=== PATIENT | female | born 2000 | race Caucasian/White ===

== ENCOUNTER 2019-03-19 19:15 | Inpatient (IN) | payer OTHER ==
--- NOTE | 2019-03-19 16:35 | PDOC.LDHP ---
Labor and Delivery H&P Chief complaint: scheduled induction HPI: 18 yo G1 @ 39w1d admit for IOL due to A1DM. Current gestational age (weeks): 39 Due date: 03/25/19 Dating criteria: first trimester ultrasound Grav: 1 Para: 0 Current complications: gestational diabetes Abnormal US findings: No Current medications: pre- vitamins Previous surgical history: other (Tonsillectomy) Allergies/Adverse Reactions: Allergies Allergy/AdvReac Type Severity Reaction Status Date / Time No Known Allergies Allergy Verified 03/19/19 21:03 Social history: none - Physical Exam Vital signs reviewed and normal: yes General: NAD Heart: RRR Lungs: nonlabored breathing Abdomen: gravid Extremeties: no edema FHT: category 1 (cat 1 on admission) [place] contractions every: no ctx on admission - Vaginal Exam cm dilated: 1 (per RN ) Effacement: 50% Station: -3 - OB Labs Blood type: O RH: positive Antibody Screen: negative HIV: negative RPR: negative HEPSAg: negative 1 hour GCT: positive 3 hour GTT: positive GBS: negative Urine drug screen: negative Rubella: immune Additional Labs: NIPT and carrier screening wnl - Assessment 39w2d IUP IOL for A1DM - Plan Plan: admit to L&D, cervical ripening, informed consent obtained, anesthesia consult for pain management
[~2019-03-19 19:15] MED LIST: Bupivacaine 0.25% HCL 30 ML VIAL ONE
[2019-03-19] MEDS: Lactated Ringer's 1,000 ML IV SCH (21:00)
[2019-03-19] MEDS ORDERED: Lidocaine 1% (PF) 30 ML VIAL SC PRN (21:01)
[2019-03-19] MEDS ORDERED: Butorphanol Tartrate 1 MG/ML VIAL SLOW IVP PRN (21:01)
[2019-03-19] MEDS ORDERED: Carboprost 250 MCG/ML AMP IM PRN (21:01)
[2019-03-19] MEDS ORDERED: NS / Oxytocin 40 units/1000ml 1,000 ML IV PRN (21:01)
[2019-03-19] MEDS ORDERED: HYDROcodone/Acetaminophen 5/325 mg Tablet PO PRN (21:01)
[2019-03-19] MEDS ORDERED: hydrALAZINE 20 MG/ML VIAL SLOW IVP PRN (21:01)
[2019-03-19] MEDS ORDERED: Ondansetron PF 4 MG/2 ML Vial IVP PRN (21:01)
[2019-03-19] MEDS ORDERED: Diphenoxylate HCl/Atropine Tablet PO PRN (21:01)
[2019-03-19] MEDS ORDERED: Acetaminophen 500 MG TAB PO PRN (21:01)
[2019-03-19] MEDS ORDERED: Ibuprofen 800 MG TAB PO PRN (21:01)
[2019-03-19] MEDS ORDERED: Promethazine HCl 25 MG/ML VIAL IM PRN (21:01)
[2019-03-19] MEDS ORDERED: Misoprostol 200 MCG TAB PR PRN (21:01)
[2019-03-19] MEDS ORDERED: Methylergonovine 0.2 MG/ML VIAL IM PRN (21:01)
[2019-03-19 21:08] VITALS: BMI 31.7
[2019-03-19 21:26] LABS: Hemoglobin 12.4 g/dL (12.0-16.0); Mean Corpuscular Hemoglobin 30.1 pg (25.0-35.0); Mean Corpuscular Volume 88.6 fL (78.0-98.0); Mean Platelet Volume 9.1 fL (7.4-10.4); Platelet Count 162 thou/uL (130-400); RBC Distribution Width 11.5 % (11.5-14.5); Red Blood Cell (RBC) Count 4.13 mill/uL (4.00-5.20); White Blood Cell (WBC) Count 7.6 thou/uL (4.8-10.8)
[2019-03-19] MEDS: Misoprostol 100 MCG TAB VAG SCH (21:39)
[2019-03-19 22:11] LABS: Syphilis Antibody Nonreactive (Nonreactive); Syphilis Antibody Index 0.02 S/CO (<1.00 Non-Reactive)
[2019-03-19 22:54] LABS: HIV (1/2) Antibody/Antigen Non-Reactive (NonReactive); HIV 1/2 INDEX 0.19 S/CO (<1.00); Hep B Surf Ag Non-Reactive S/CO (NonReactive)
[2019-03-20] MEDS ORDERED: Misoprostol 100 MCG TAB PO SCH (00:30)
[2019-03-20] MEDS: Lactated Ringer's 1,000 ML IV SCH ×2 (01:30→05:06)
[2019-03-20] MEDS ORDERED: Fentanyl 4 mcg/Bup 0.1% Cadd 100 ML ONE (01:51)
[2019-03-20] MEDS ORDERED: Lactated Ringer's 500 ML IV PRN (03:12)
[2019-03-20] MEDS ORDERED: Promethazine HCl 25 MG/ML VIAL IM PRN (03:12)
[2019-03-20] MEDS ORDERED: Acetaminophen 325 MG TAB PO PRN (03:12)
[2019-03-20] MEDS ORDERED: ePHEDrine/0.9% NaCl/PF SYRINGE 50 mg/10 ml SLOW IVP PRN (03:12)
[2019-03-20] MEDS ORDERED: Naloxone HCl 0.4 mg/ml Vial IVP PRN ×2 (03:12)
[2019-03-20] MEDS ORDERED: diphenhydrAMINE 50 MG/ML VIAL IVP PRN (03:12)
[2019-03-20] MEDS ORDERED: Ondansetron PF 4 MG/2 ML Vial IVP PRN (03:12)
[2019-03-20] MEDS ORDERED: Communication Order-Pharmacy FS SCH (03:15)
[2019-03-20] MEDS ORDERED: Fentanyl 4 mcg/Bupivacaine 0.1% Cassette 100 ML EPIDURAL SCH (03:15)
[2019-03-20] MEDS ORDERED: Terbutaline Sulfate 1 MG/ML VIAL ONE (06:26)
--- NOTE | 2019-03-20 07:44 | PDOC.LDPN ---
Labor & Delivery Progress Note - Subjective Subjective: comfortable - Objective Vital signs reviewed and normal: yes General: NAD Uterine fundus: non tender Dilation: 9 Effacement: 100% Station: 1+ FHT: category 2 (120s, mod annabelle, +accels, occasional late decels that resolve btw ctx. ) [place] contractions every: q1-3 min - Assessment (1) 39 weeks gestation of Code(s): Z3A.39 - 39 WEEKS GESTATION OF Current Visit: Yes Status : Acute (2) Gestational diabetes Code(s): O24.419 - GESTATIONAL DIABETES MELLITUS IN , UNSP CONTROL Current Visit: Yes Status: Acute (3) Encounter for induction of labor Code(s): Z34.90 - ENCNTR FOR SUPRVSN OF NORMAL , UNSP, UNSP TRIMESTER Current Visit: Yes Status: Acute Plan: continue plan of care, resuscitative measures -: Amnioinfusion started this morning and pt on O2 in left lateral position FHTs likely due to rapid change. Monitor closely.
--- NOTE | 2019-03-20 08:38 | PDOC.OPDEL ---
OB Operative/Delivery Note Delivery Dr/Surgeon: Pat Torres DO Pre-Delivery Diagnosis: medically indicated induction Procedure/Post Delivery Dx: spontaneous vaginal delivery Weeks gestation: 39 - Findings A Sex: male - 1 min: 1 - 5 min: 9 - Additional Findings/Plan Placenta delivered: spontaneous Repaired Obstetrical Laceration: 1st degree (and right labial laceration) Estimated blood loss: EBL 300 cc Compilations/Other Findings: Variable decels to 80s-90s with pushing, recovered between contractions. Pushing lasted approx 10 minutes. delivered in SOPHIA position with nuchal cord x 1 Clear amniotic fluid Normal appearing placenta Nursery at bedside at delivery Cord gases pending. Post delivery plan: routine recovery
[2019-03-20 08:52] LABS: Actual Bicarbonate (HCO3v) 22 mEq/L (22-28); Base Excess -8.9 mEq/L (-2.0 to +3.0)
[2019-03-20 08:54] LABS: Actual Bicarbonate (HCO3a) 23.5 mEq/L (22-28); Base Excess (BEa) -8.8 mEq/L (-2.0 to +3.0)
[2019-03-20 08:55] LABS: pH (Cord, venous) 7.14 (7.32-7.43)
[2019-03-20] MEDS: Misoprostol 100 MCG TAB VAG SCH ×5 (12:24→23:35)
[2019-03-20] MEDS: NS w/ Oxytocin 10 units 500 ML IV SCH ×2 (12:28→23:36)
[2019-03-20] MEDS ORDERED: NS / Oxytocin 40 units/1000ml 1,000 ML IV SCH (14:19)
[2019-03-20] MEDS ORDERED: Preparation H Ointment 28 GM TUBE PR PRN (14:19)
[2019-03-20] MEDS ORDERED: diphenhydrAMINE 25 MG CAP PO PRN (14:19)
[2019-03-20] MEDS ORDERED: HYDROcodone/Acetaminophen 5/325 mg Tablet PO PRN (14:19)
[2019-03-20] MEDS ORDERED: hydrALAZINE 20 MG/ML VIAL SLOW IVP PRN (14:19)
[2019-03-20] MEDS ORDERED: Bisacodyl 10 MG SUPP PR PRN (14:19)
[2019-03-20] MEDS ORDERED: Milk Of Magnesia 30 ML UDCUP PO PRN (14:19)
[2019-03-20] MEDS: Ibuprofen 800 MG TAB PO SCH ×2 (14:57→21:35)
[2019-03-20] MEDS: Docusate Calcium (SURFAK) 240 MG CAP PO SCH (21:35)
[2019-03-21] MEDS: Ibuprofen 800 MG TAB PO SCH ×3 (06:00→21:38)
[2019-03-21 06:03] LABS: Hemoglobin 10.6 g/dL (12.0-16.0); Mean Corpuscular HGB CONC 34.2 g/dL (32.0-36.0); Mean Corpuscular Hemoglobin 31.1 pg (25.0-35.0); Mean Corpuscular Volume 90.9 fL (78.0-98.0); Platelet Count 128 thou/uL (130-400); RBC Distribution Width 11.4 % (11.5-14.5); White Blood Cell (WBC) Count 9.2 thou/uL (4.8-10.8)
[2019-03-21] MEDS: Docusate Calcium (SURFAK) 240 MG CAP PO SCH ×2 (08:14→21:38)
[2019-03-21] MEDS: Misoprostol 100 MCG TAB VAG SCH ×4 (08:16→19:24)
--- NOTE | 2019-03-21 09:30 | PDOC.PP ---
Post Progress Note Post Day #: 1 Subjective: No concerns. Minimal pain and lochia. Learning how to breast feed, desires LC. PO intake tolerated: yes Flatus: yes Ambulation: yes Vital Signs (12 hours) Temp Pulse Resp BP Pulse Ox 03/21/19 07:41 98.4 F 80 20 119/70 98 03/21/19 04:24 98.2 F 93 18 137/87 97 03/20/19 23:34 98.3 F 68 18 119/76 100 Weight Weight 185 lb - Physical Examination General: NAD Cardiovascular: RRR Respiratory: non-labored breathing Abdominal: no distention, appropriately TTP Fundus firm & at: below umbilicus Extremities: negative homans (B) Neurological: no gross focal deficits Psychiatric: A&Ox3, normal affect Result Diagrams: 03/21/19 05:41 Additional Labs: Post Labs Blood Type O POSITIVE 03/19/19 21:31 Hep Bs Antigen Non-Reactive S/CO (NonReactive) 03/19/19 21:08 (1) 39 weeks gestation of Code(s): Z3A.39 - 39 WEEKS GESTATION OF Status: Resolved (2) Gestational diabetes Code(s): O24.419 - GESTATIONAL DIABETES MELLITUS IN , UNSP CONTROL Status: Resolved (3) Encounter for induction of labor Code(s): Z34.90 - ENCNTR FOR SUPRVSN OF NORMAL , UNSP, UNSP TRIMESTER Status: Resolved (4) Vaginal delivery Code(s): O80 - ENCOUNTER FOR FULL-TERM UNCOMPLICATED DELIVERY Status: Acute - Assessment/Plan PPD1 VSSAF One temp 100.4F after , all repeats wnl, no abx indicated. Continue PP care LC today Plan for d/c tomorrow
[2019-03-21] MEDS: NS w/ Oxytocin 10 units 500 ML IV SCH (19:25)
--- NOTE | 2019-03-22 03:29 | PDOC.PP ---
Post Progress Note Post Day #: 2 Subjective: Patient doing well. No significant overnight events. Lochia minimal. Patient states is going well. PO intake tolerated: yes Flatus: yes Ambulation: yes Vital Signs (12 hours) Temp Pulse Resp BP Pulse Ox 03/22/19 00:00 98.2 F 60 12 105/59 L 03/21/19 19:07 98.3 F 62 12 111/72 98 03/21/19 16:45 98.7 F 70 12 114/53 L 95 Weight Weight 83.915 kg - Physical Examination General: NAD Cardiovascular: RRR Respiratory: non-labored breathing Abdominal: + bowel sounds, lochia (minimal), no distention, appropriately TTP Fundus firm & at: umbilicus Skin: no rash Neurological: no gross focal deficits Psychiatric: A&Ox3, normal affect Result Diagrams: 03/21/19 05:41 Additional Labs: Post Labs Blood Type O POSITIVE 03/19/19 21:31 Hep Bs Antigen Non-Reactive S/CO (NonReactive) 03/19/19 21:08 (1) Vaginal delivery Code(s): O80 - ENCOUNTER FOR FULL-TERM UNCOMPLICATED DELIVERY Status: Acute (2) Gestational diabetes Code(s): O24.419 - GESTATIONAL DIABETES MELLITUS IN , UNSP CONTROL Status: Resolved - Assessment/Plan Routine PP care - PP day #2 s/p - Meeting PP milestones - Rh positive, rubella immune - Lochia minimal - GBS neg - ; states doing better A1GDM - Will need 2h GTT 6 wk PP Dispo: Plan for d/c home today
[2019-03-22] MEDS: Ibuprofen 800 MG TAB PO SCH (05:58)
[2019-03-22] MEDS: Misoprostol 100 MCG TAB VAG SCH (08:06)
[2019-03-22] MEDS: Docusate Calcium (SURFAK) 240 MG CAP PO SCH (08:20)
[2019-03-22 11:51] VITALS: BP 120/68; TEMP 98.2
== END 2019-03-22 11:58 | disposition home or self-care (01) | DRG 807 ==
LOC: OBSVTOIN 19:41 → INTOOBSV 19:41 → L&D 19:41 → 3SE 03-20 13:32
PROVIDERS: ADMIT Obstetrics & Gynecology; ATTEND Obstetrics & Gynecology
PROC: 3E0P7VZ Introduction of Hormone into Female Reproductive, Via Natural or Artificial Opening (ICD-10-PCS; principal; 2019-03-20)
PROC: 10E0XZZ Delivery of Products of Conception, External Approach (ICD-10-PCS; 2019-03-20)
DX: O24.429 Gestational diabetes mellitus in childbirth, unspecified control (principal); Z37.0 Single live birth; Z3A.39 39 weeks gestation of pregnancy; O76 Abnormality in fetal heart rate and rhythm complicating labor and delivery; O70.0 First degree perineal laceration during delivery
CPT/HCPCS: 36415; 36416; 51702; 82805; 85027; 86780; 86850; 86900; 86901; 87340; 87389; J3105; S0020